=== PATIENT | female | born 1985 | race Caucasian/White ===

== ENCOUNTER 2018-07-04 18:47 | Emergency (ER) | END 2018-07-04 23:28 | disposition home or self-care (01) ==

== ENCOUNTER 2019-02-01 15:50 | Outpatient (CLI) | payer OTHER ==
[~2019-02-01] VITALS: Ht 154.9 cm; Wt 71.3 kg
[~2019-02-01 15:50] MED LIST: HYDR-3498 PO; IBUP-1542 PO; NAPR-985 PO; ONDA4TAB35 PO; PANT20TA2 PO; UDMYL PO
[2019-02-01 16:14] VITALS: BP 108/64; PULSE 97; RESP 20; Ht 154.9 cm; Wt 71.3 kg
[2019-02-01] MEDS ORDERED: PREN1TAB13 PO (16:17)
--- NOTE | 2019-02-01 18:45 | PN ---
Triage Information Date/Time Reason for visit: pelvic pressure for one week Weeks of Gestation 33w /Para Diabetes: none Hypertention: none Additional information UTI last mo treated Objective Vital Signs Date Temp Pulse Resp B/P (MAP) Pulse Ox O2 O2 Flow FiO2 Time Delivery Rate 02/01/19 98.1 97 20 108/64 Room Air 16:14 (79) Heart Rate: 140's Heart Rate Comments CAT I Contractions: None Results/Medications Result Diagram: 02/01/19 1727 Results 24 hrs Laboratory Tests Test 02/01/19 16:10 02/01/19 17:27 Urine Color SILVIA Urine Clarity TURBID A Urine pH 6.0 Urine Specific [place] 1.006 Urine Ketones NEGATIVE Urine Nitrite POSITIVE A Urine Bilirubin NEGATIVE Urine Urobilinogen NEGATIVE Urine Leukocyte Esterase 3+ H Urine Microscopic RBC 6 H Urine Microscopic WBC > 182 H Urine Squamous Epithelial Cells FEW Urine Bacteria MODERATE Urine Hemoglobin 2+ H Urine Glucose 1+ H Urine Total Protein 1+ H White Blood Count 6.0 # Red Blood Count 3.40 #L Hemoglobin 9.9 L Hematocrit 29.7 #L Mean Corpuscular Volume 87.4 Mean Corpuscular Hemoglobin 29.1 Mean Corpuscular Hemoglobin Concent 33.3 Red Cell Distribution Width 12.7 Platelet Count 198 Mean Platelet Volume 11.1 H Immature Granulocytes % 0.300 Neutrophils % 65.8 Lymphocytes % 20.5 Monocytes % 12.4 H Eosinophils % 0.8 Basophils % 0.2 Nucleated Red Blood Cells % 0.0 Immature Granulocytes # 0.020 Neutrophils # 3.9 Lymphocytes # 1.2 Monocytes # 0.7 Eosinophils # 0.1 Basophils # 0.0 Nucleated Red Blood Cells # 0.0 Imaging Results BPP 8/8 CVL 3.5 AURELIO 8 cervix closed Disposition: Discharge Assessment/Plan A IUP 33w UTI borderline oligohydramnios P Rx cephalexin 500mg q6hr for 7days Increase H20 RTH for AURELIO in 2days PARAG HEMPHILL MD Feb 01, 2019 18:45
--- NOTE | 2019-02-01 18:56 | TRIAGE ---
OB Triage Datetime Report Generated by CPN: 02/01/2019 18:56 Datetime: 02/01/2019 17:44 Labor Evaluation Frequency: X2 Monitor Mode: External Duration (sec)2399: 40 Heart Rate FHR Baseline Rate: 140 Monitor Mode: External US FHR Baseline Changes: No Baseline Change Variability: Moderate 6-25 bpm Accelerations: 15X15 Decelerations: None Category: Category I Pain Assessment Pain Scale: 0 Pain Presence: None/Denies Pain Type: N/A Pain Goal: 0 Datetime: 02/01/2019 17:12 Labor Evaluation Frequency: 0 Monitor Mode: External Heart Rate FHR Baseline Rate: 150 Monitor Mode: External US FHR Baseline Changes: No Baseline Change Variability: Moderate 6-25 bpm Accelerations: 15X15 Decelerations: None Category: Category I Pain Assessment Pain Scale: 0 Pain Presence: None/Denies Pain Type: N/A Pain Goal: 0 Datetime: 02/01/2019 16:42 Labor Evaluation Frequency: 0 Monitor Mode: External Heart Rate FHR Baseline Rate: 140 Monitor Mode: External US FHR Baseline Changes: No Baseline Change Variability: Moderate 6-25 bpm Accelerations: 15X15 Decelerations: None Category: Category I Pain Assessment Pain Scale: 0 Pain Presence: None/Denies Pain Type: N/A Pain Goal: 0 Datetime: 02/01/2019 16:10 Assessment Type: Triage Time of Arrival: 02/01/2019 15:36 EGA: 33.0 Chief Complaint: pressure for 1 week Movement: Present Contractions: Denies/Absent Rupture of Membranes: Denies Vaginal Discharge: Denies Recent Sexual Intercouse: Yes Abdominal Trauma: Not Applicable Patient Complaints: Other Time Provider Notified: 02/01/2019 17:05 Provider Notified: DR FREGOSO Initial Plan: efm, ua, bpp Maternal Assessment Level of Consciousness: Fully Conscious DTR's/Clonus: DTRs 2+; No Clonus Headache: Denies Blurred Vision: No Respiratory Effort: Unlabored; Regular Rhythm; Equal Expansion Nausea/Vomiting: Denies RUQ Epigastric Pain: Denies Lower Extremities Edema: Left Lower Extremity Degree: None Upper Extremities Edema: None Degree: None Facial Edema: None Fall Risk Assessment History of Falling: (0) No Secondary Diagnosis: (0) No Ambulatory Aid: (0) Bedrest/Nurse Assist IV Therapy: (0) No Gait: (0) Normal/Bedrest/Immobile Mental Status: (0) Oriented to Own Ability Fall Score: 0 Fall Risk Score Definition: No Risk: No action required Monitor Mode: External Monitor Mode: External US Pain Assessment Pain Scale: 0 Pain Presence: Constant Pain Type: Pressure Pain Location: Perineum Pain Goal: 0 Vaginal Exam Membrane Status: Intact
== END 2019-02-01 18:45 | disposition home or self-care (01) ==
LOC: OBT 15:50 → L-D 15:51 → OBT 18:45
PROVIDERS: ATTEND Obstetrics & Gynecology
DX: O23.43 Unspecified infection of urinary tract in pregnancy, third trimester (principal); O41.03X0 Oligohydramnios, third trimester, not applicable or unspecified; Z3A.33 33 weeks gestation of pregnancy
CPT/HCPCS: 76817; 76818; 81001; 85025; 87086; G0463

== ENCOUNTER 2019-03-02 21:49 | Inpatient (IN) | payer OTHER ==
[~2019-03-02] VITALS: Ht 154.9 cm; Wt 70.9 kg
[~2019-03-02 21:49] MED LIST changes: -HYDR-3498 PO; -IBUP-1542 PO; -NAPR-985 PO; -ONDA4TAB35 PO; -PANT20TA2 PO; +PREN1TAB13 PO; -UDMYL PO
[2019-03-02 22:00] VITALS: BP 107/60; PULSE 88; RESP 16
[2019-03-02] MEDS: ACETAMINOPHEN 325 MG TAB PO PRN (23:37)
[2019-03-02] MEDS: DEXTROSE 5%-LR 1,000 ML IV SCH (23:37)
[2019-03-03] MEDS ORDERED: ACETAMINOPHEN 325 MG TAB PO PRN (00:30)
[2019-03-03] MEDS ORDERED: AL HYDROX/MG HYDROX/SIMETH 30 ML CUP PO PRN (00:30)
[2019-03-03] MEDS ORDERED: ONDANSETRON 4 MG INJ IV PRN (00:30)
--- NOTE | 2019-03-03 01:29 | HP ---
Date/Time of Note Date/Time of Note DATE: 03/03/19 TIME: 01:16 OB - History Hx of Present Free Text/Dictation 33 years old -0-1-3 with single intrauterine at 37 weeks and 2 days with a SHERMAN of 614 arrived in triage with EMS for fainting at home. She reports possible abdominal trauma. She states had another episode of fainting very early in between 4 to 5 weeks. She had no further evaluation at that time. She states good movement. She denies nausea, vomiting, shortness of breath, chest pain, headache, visual changes, vaginal bleeding or LOF. Chief Complaint: Fainting Estimated Due Date: Mar 22, 2019 : 5 Para: 3 Spontaneous : 1 Therapeutic : 0 Care: Good Care Ultrasounds: Normal mid trimester US Obstetrical Complications: None Medical Complications: None Past Family/Social History * Past Medical, Surgical, Family and Obstetric Histories reviewed which were unremarkable. OB Admission Exam Vital Signs Vital Signs Blood pressure 100 7/62, pulse rate 74/minutes, respiratory rate 16/minutes, temperature 98 point Physical Exam HEENT: WNL Heart: Rhythm Normal Lungs: Clear Abdomen: WNL Extremities: Normal Reflexes: Normal Membranes: Intact Heart Rate: 140's Accelerations: Accelerations Present Decelerations: No Decelerations Varibility: Moderate Contractions on Admission: 6-10 Minutes Apart Last 72 hours Lab Results CBC & BMP 03/02/19 22:51 Liver Function Test 03/02/19 22:51 Alanine Aminotransferase (ALT/SGPT) 12 L Albumin 3.5 Alkaline Phosphatase 146 H Aspartate Amino Transf (AST/SGOT) 19 Direct Bilirubin 0.00 Total Protein 6.8 OB Assessment/Plan Other plan: 33 years old -0-1-3 with single intrauterine at 37 weeks and 2 days had one episode of fainting at home -FHR: No sign of metabolic acidosis- Category I -Continuous EFM, toco -Labs as noted above, hemoglobin 9.1. Recommending increase ferrous sulfate to 325 mg twice daily- -Please see the orders -Obtain lab results and ultrasound -EKG done, wnl -Close monitoring LUANN HOOD March 03, 2019 01:28
--- NOTE | 2019-03-03 03:20 | TRIAGE ---
OB Triage Datetime Report Generated by CPN: 03/03/2019 03:19 Datetime: 03/03/2019 02:20 Stage of : Antepartum Datetime: 03/03/2019 02:11 Maternal Assessment Headache: Denies Nausea/Vomiting: Denies Temperature Route: Axillary Monitor Mode: External Pain Assessment Pain Scale: 0 Datetime: 03/02/2019 22:15 Time of Arrival: 03/02/2019 21:37 EGA: 37.1 Arrived By: Stretcher; Ambulance Arrived From: Home Chief Complaint: brought in by ambulance after syncope episode at 2100 where she fell on floor hitting mouth and chicpped 2 front teeth Movement: Absent Contractions: Irregular Rupture of Membranes: Denies Vaginal Bleeding: None Vaginal Discharge: Denies Recent Sexual Intercouse: Denies Abdominal Trauma: Not Applicable Patient Complaints: Cramping; Dizziness; Other Time Provider Notified: 03/02/2019 22:00 Provider Notified: Dr Olson Initial Plan: EFM, CBC,CMP,UA,EFW,BPP,PLACENTA,EKG,D5LR Datetime: 02/01/2019 18:31 Labor Evaluation Frequency: 0 Monitor Mode: External Heart Rate FHR Baseline Rate: 140 Monitor Mode: External US FHR Baseline Changes: No Baseline Change Variability: Moderate 6-25 bpm Accelerations: 15X15 Decelerations: None Category: Category I Pain Assessment Pain Scale: 0 Pain Presence: None/Denies Pain Type: N/A Pain Goal: 0 Datetime: 02/01/2019 16:10 EGA: 33.0 Fall Risk Assessment Fall Score: 0 Fall Risk Score Definition: No Risk: No action required
[2019-03-03] MEDS: DEXTROSE 5%-LR 1,000 ML IV SCH ×3 (06:55→17:51)
[2019-03-03] MEDS: PRENATAL VITAMIN PO SCH (09:55)
[2019-03-03] MEDS: NITROFURANTOIN (SR) 100 MG CAP PO SCH (09:55)
[2019-03-03] MEDS: FERROUS SULFATE (EC) 325 MG TAB PO SCH (09:55)
[2019-03-03] MEDS: ACETAMINOPHEN 325 MG TAB PO PRN ×2 (11:06→19:11)
--- NOTE | 2019-03-03 19:28 | RADRPT ---
Vent Rate: 80 bpm RR Interval: 748 msec NM Interval: 155 msec QRS Duration: 85 msec QT Interval: 347 msec QTC Interval: 401 msec P-R-T [place]: 70 - 19 - 37 degrees Sinus rhythm...normal P axis, V-rate 50- 99 Electronically Signed By: Antonio Hogan
[2019-03-04] MEDS: NITROFURANTOIN (SR) 100 MG CAP PO SCH (08:20)
[2019-03-04] MEDS: PRENATAL VITAMIN PO SCH (08:20)
[2019-03-04] MEDS: FERROUS SULFATE (EC) 325 MG TAB PO SCH (08:20)
--- NOTE | 2019-03-04 13:10 | PN ---
Date/Time of Note Date/Time of Note DATE: 03/04/19 TIME: 13:09 Assessment/Plan VTE Prophylaxis Pharmacological prophylaxis: NA/contraindicated Pharm contraindication: low risk/ambulating Lines/Catheters IV Catheter Type (from Nrsg): Peripheral IV Assessment/Plan Result Diagram: 03/02/19225003/02/191 Results 24hrs Syncopal attack Intrauterine 27 weeks Medicine consult is placed Subjective 24 Hr Interval Summary Free Text/Dictation Currently patient is asymptomatic Constitutional: no complaints, improved Eyes: no complaints ENT: no complaints Respiratory: no complaints Cardiovascular: no complaints Gastrointestinal: no complaints Genitourinary: no complaints Musculoskeletal: no complaints Skin: no complaints Neurologic: no complaints Endocrine: no complaints Lymphatic: no complaints Psychological: no complaints, nl mood/affect Immunologic: no complaints Exam/Review of Systems Exam Vitals Vital Signs Date Temp Pulse Resp B/P (MAP) Pulse Ox O2 O2 Flow FiO2 Time Delivery Rate 03/02/19 98.2 88 16 107/60 99 Room Air 22:00 (76) Intake and Output 03/03/19 03/03/19 03/04/19 1515:00 23:00 07:00 IntakeIntake Total 1000 ml 875 ml OutputOutput Total 1750 ml BalanceBalance 1000 ml -875 ml Exam Patient does not seem to have uterine contractions Medications Medication Current Medications Acetaminophen (Tylenol Tab) 650 mg Q4H PRN PO MILD PAIN(1-3)OR ELEVATED TEMP Last administered on 03/03/19at 19:11; Admin Dose 650 MG; Start 03/02/19 at 23:00 Prenat Multivit/ Supply Chain Consultant/Iron/Folic Ac () 1 tab DAILY PO Last administered on 03/04/19at 08:20; Admin Dose 1 TAB; Start 03/03/19 at 09:00 Ferrous Sulfate (Ferrous Sulfate (Ec)) 325 mg DAILY PO Last administered on 03/04/19at 08:20; Admin Dose 325 MG; Start 03/03/19 at 09:00 Acetaminophen (Tylenol Tab) 650 mg Q4H PRN PO .PAIN OR TEMP; Start 03/03/19 at 00:30 Al Hydrox/Mg Hydrox/Simethicone (Mag-Al Plus) 30 ml Q6H PRN PO .GI UPSET; Start 03/03/19 at 00:30 Ondansetron HCl (Zofran Inj) 4 mg Q6H PRN IV NAUSEA/VOMITING; Start 03/03/19 at 00:30 Nitrofurantoin Macrocrystals (Macrobid) 100 mg DAILY PO Last administered on 03/04/19at 08:20; Admin Dose 100 MG; Start 03/03/19 at 09:00 ERIKA FISHMAN MD March 04, 2019 13:10
[2019-03-04 15:37] VITALS: BP 97/57; PULSE 77; RESP 20
[2019-03-04 15:43] VITALS: BP 115/69
[2019-03-04 15:50] VITALS: BP 102/62; PULSE 98; RESP 20
--- NOTE | 2019-03-04 17:13 | CONS ---
Assessment/Plan Assessment/Plan Hospital Course (Demo Recall) 33 yo F , 37 weeks with PMH migraines presented to ED after syncop al episode Assessment/Plan (Daily) 1. Syncopal episode - Patient states she was stressed at time of event. 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 Will need outpatient evaluation with CT head after delivery 2. Migraines - supportive treatment with Tylenol - states she changed her diet and avoids pork which has helped limit migraine episodes 3. UTI - continue on Macrobid 4. 37 weeks - management per OB 5. Disposition - will check orthostatic vitals and ECHO to rule out cardiology etiology for syncopal episode. Will need outpatient follow up for migraine management and neuro workup after delivery Thank you for allowing me to participate in the care of your patient. Further recommendations based on results of ECHO and vitals. Please call with any questions Consultation Date/Type/Reason Admit Date/Time March 02, 2019 at 23:25 Date of Consultation: March 04, 2019 Type of Consult internal medicine Reason for Consultation syncopal episode Date/Time of Note DATE: 03/04/19 TIME: 16:54 Hx of Present Illness 33 yo F , 37 weeks with PMH migraines presented to ED after syncopal episode of Monday during her baby shower. She was concerned for baby's safety since did not feel movement for 2 weeks. Patient states she does not remember events leading up to syncopal episode. She woke up after having fallen on her face causing injury to her two front teeth and swelling of lip. She does admit to being stressed lately. She has had a previous syncopal episode during the first few weeks of where she tripped as well. Denies any issues prior to . Take Tylenol for migraines during but prior would take Ibuprofen. Unsure if current RUSSO is from fall or migraine symptoms. Patient denies any current chest pain, shortness of breath, dizziness, abdominal pain, or urinary issues. She does admit to taking PO antibiotics as outpatient for persistent UTI. Unsure how much longer she requires antibiotics and does not remember how many days she has taken the medication so far. Just remembers it is once a day. All 12 systems reviewed and pertinent positives as per HPI. All others negative. Constitutional: No disoriented Eyes: No discharge ENT: other (swelling of upper lip, broken right front tooth) Respiratory: No pain, No cough, No shortness of breath, No sputum, No wheezing Cardiovascular: No chest pain, No lightheadedness, No palpitations Gastrointestinal: No pain, No constipation, No diarrhea, No nausea, No vomiting Genitourinary: no complaints Musculoskeletal: no complaints Skin: laceration (lip); No rash Neurologic: headache, syncope; No confusion, No dizziness, No focal-weakness Endocrine: no complaints Lymphatic: no complaints Psychological: nl mood/affect Immunologic: no complaints Past Medical History Medical History: no pertinent history Home Meds Reported Medications Pnv95/Ferrous Fumarate/FA ( Vitamins Tablet) 1 Each Tablet, 1 EACH PO DAILY, TAB 02/01/19 Medications Current Medications Acetaminophen (Tylenol Tab) 650 mg Q4H PRN PO MILD PAIN(1-3)OR ELEVATED TEMP Last administered on 03/03/19at 19:11; Admin Dose 650 MG; Start 03/02/19 at 23:00 Prenat Multivit/ Railroad Wheels [employer] Axle Inspector/Iron/Folic Ac () 1 tab DAILY PO Last administered on 03/04/19at 08:20; Admin Dose 1 TAB; Start 03/03/19 at 09:00 Ferrous Sulfate (Ferrous Sulfate (Ec)) 325 mg DAILY PO Last administered on 03/04/19at 08:20; Admin Dose 325 MG; Start 03/03/19 at 09:00 Acetaminophen (Tylenol Tab) 650 mg Q4H PRN PO .PAIN OR TEMP; Start 03/03/19 at 00:30 Al Hydrox/Mg Hydrox/Simethicone (Mag-Al Plus) 30 ml Q6H PRN PO .GI UPSET; Start 03/03/19 at 00:30 Ondansetron HCl (Zofran Inj) 4 mg Q6H PRN IV NAUSEA/VOMITING; Start 03/03/19 at 00:30 Nitrofurantoin Macrocrystals (Macrobid) 100 mg DAILY PO Last administered on 03/04/19at 08:20; Admin Dose 100 MG; Start 03/03/19 at 09:00 Allergies: Coded Allergies: No Known Allergy (Unverified , 03/02/19) Past Surgical History Past Surgical Hx: no surgical history Family History Significant Family History: no pertinent family hx Social History Alcohol Use: none Smoking Status: Never smoker Drug Use: none Exam/Review of Systems Exam Vitals Vital Signs Date Temp Pulse Resp B/P (MAP) Pulse Ox O2 O2 Flow FiO2 Time Delivery Rate 03/04/19 98 20 102/62 Room Air 15:50 (75) 03/02/19 98.2 99 22:00 Intake and Output 03/03/19 03/03/19 03/04/19 1515:00 23:00 07:00 IntakeIntake Total 1000 ml 875 ml OutputOutput Total 1750 ml BalanceBalance 1000 ml -875 ml Exam General: Patient is pleasant, currently lying in bed in no acute distress HEENT: swelling of upper lip with small laceration, dried blood. broke right front tooth. The pupils are equal, round and reactive. Extraocular motor are intact Neck: Supple Chest: Nontender Lungs: Clear to auscultation bilaterally, no wheezing or rhonchi Heart: Normal S1-S2, Regular rhythm and rate. No murmur, S3, or S4 Abdomen: Soft , nontender, , bowel sounds are present. No guarding no rebound tenderness Extremities: Normal to inspection, no edema no cyanosis Neurologic: Normal mental status, speech normal, cranial nerves II through XII are intact, motor and sensory are intact, no focal weakness Skin: no rashes or lesions Results Result Diagram: 03/02/19225003/02/192250 Imaging Imaging PROCEDURE: US OB biophysical profile. CLINICAL INDICATION: decreased movements, TECHNIQUE: Multiple sonographic images of the pelvis were obtained. The images were reviewed on a PACS workstation. COMPARISON: 02/27 FINDINGS: There is a single live intrauterine gestation. Cardiac activity is present with 139 beats per minute. There is a vertex presentation. The placenta is Posterior. There is no evidence of placental abruption. AURELIO = 8 cm. Biophysical profile: movement 2/2 tone 2/2. breathing 2/2 AURELIO 2/2 Total 05/16 RPTAT: AA . IMPRESSION: Normal biophysical profile. . .Juvencio Garcia MD, MD Date Time Electronically viewed and signed by .Juvencio Garcia MD, MD on 03/02/2019 23:25 Medications Medication Current Medications Acetaminophen (Tylenol Tab) 650 mg Q4H PRN PO MILD PAIN(1-3)OR ELEVATED TEMP Last administered on 03/03/19 19:11; Admin Dose 650 MG; Start 03/02/19 at 23:00 Prenat Multivit/ [place]/Iron/Folic Ac () 1 tab DAILY PO Last administered on 03/04/19 08:20; Admin Dose 1 TAB; Start 03/03/19 at 09:00 Ferrous Sulfate (Ferrous Sulfate (Ec)) 325 mg DAILY PO Last administered on 03/04/19 08:20; Admin Dose 325 MG; Start 03/03/19 at 09:00 Acetaminophen (Tylenol Tab) 650 mg Q4H PRN PO .PAIN OR TEMP; Start 03/03/19 at 00:30 Al Hydrox/Mg Hydrox/Simethicone (Mag-Al Plus) 30 ml Q6H PRN PO .GI UPSET; Start 03/03/19 at 00:30 Ondansetron HCl (Zofran Inj) 4 mg Q6H PRN IV NAUSEA/VOMITING; Start 03/03/19 at 00:30 Nitrofurantoin Macrocrystals (Macrobid) 100 mg DAILY PO Last administered on 03/04/19 08:20; Admin Dose 100 MG; Start 03/03/19 at 09:00 GABE VELAZQUEZ MD March 04, 2019 17:05
[2019-03-04 20:06] VITALS: BP 100/59; PULSE 83; RESP 17
[2019-03-04 20:08] VITALS: BP 98/50; PULSE 80
[2019-03-04 20:10] VITALS: BP 106/58
[2019-03-05] VITALS (9 sets, daily range): BP systolic 92–112; BP diastolic 52–87; PULSE 77–94; RESP 18
[2019-03-05] MEDS: NITROFURANTOIN (SR) 100 MG CAP PO SCH (09:06)
[2019-03-05] MEDS: PRENATAL VITAMIN PO SCH (09:06)
[2019-03-05] MEDS: FERROUS SULFATE (EC) 325 MG TAB PO SCH (09:06)
[2019-03-05] MEDS: ACETAMINOPHEN 325 MG TAB PO PRN (09:09)
[2019-03-05] MEDS ORDERED: POTASSIUM CHLORIDE (SR) 20 MEQ TAB PO STA (09:40)
--- NOTE | 2019-03-05 15:24 | RADRPT ---
Echocardiogram Report Patient Name: HERRERA ANNPatient ID: [id number] : 1985 (33y 5m)Study Date: 03/05/2019 10:04:13 AM Gender: FAccession #: [id number] Tech: Tarun Rod [facility] Location: [facility] Ref.Physician: GABE VELAZQUEZ Height(Cm): BSA: Weight(Kg): Quality: AdequateOrder Physician: GABE VELAZQUEZ Account #: Procedures: Echocardiographic Report: Transthoracic echocardiogram with complete 2D, M-Mode, and doppler examination. Indications: Syncope. Measurements: 2D/M Mode Doppler Measurement Value Normal Range Measurement Value Normal Range LVIDd 2D 4.4 [ 3.8 - 5.2 ] cm AV Peak Ruben 1.5 [ 100.0 - 170.0 ] cm/sec LVIDs 2D 3.1 [ 2.2 - 3.5 ] cm AV Peak PG 10.0 [ 2.0 - 9.0 ] mmHg LVPWd 2D 0.9 [ 0.6 - 0.9 ] cm LVOT Peak Ruben 1.1 [ 70.0 - 110.0 ] cm/sec IVSd 2D 1.0 [ 0.6 - 0.9 ] cm LVOT Peak PG 5.0 [ 2.0 - 6.0 ] mmHg IVS/LVPW 2D 1.1 ratio MV E Peak Ruben 0.9 [ 60.0 - 130.0 ] cm/sec AoR Diam 2D 2.3 [ 2.3 - 3.1 ] cm MV A Peak Ruben 0.7 [ 100.0 - 120.0 ] cm/sec LA/Ao 2D 1 ratio MV E/A 1.4 [ 0.8 - 1.5 ] ratio LA Dimen 2D 3.4 [ 2.7 - 3.8 ] cm MV Decel Time 194 [ 104 - 258 ] msec Lat E` Ruben 0.2 [ 10.0 - 15.0 ] cm/sec MV E/A 1.4 [ 0.8 - 1.5 ] ratio TR Peak Ruben 2.8 [ 100.0 - 280.0 ] cm/sec TR Peak PG 32.0 mmHg RVSP 35.0 [ 10.0 - 36.0 ] mmHg Findings: Left Ventricle: Normal left ventricular systolic function. Normal left ventricular cavity size. Normal left ventricular wall thickness. Ejection fraction is visually estimated at 55 %. Tissue Doppler/Mitral Doppler indices are consistent with pseudonormalization with mildly elevated left atrial pressure (Stage II diastolic dysfunction). Right Ventricle: Normal right ventricular size. Normal right ventricular systolic function. Left Atrium: The left atrium is normal in size. Right Atrium: The right atrium is normal in size. Mitral Valve: Mild mitral leaflet calcification. Mild mitral annular calcification. Trace mitral regurgitation. Aortic Valve: No hemodynamically significant aortic stenosis by doppler. Aortic cusps appear mildly calcified. Tricuspid Valve: Normal appearance of the tricuspid valve. The estimated Peak RVSP is 35 mmHg. There is mild tricuspid regurgitation. Pericardium: Normal pericardium with no significant pericardial effusion. Aorta: Normal aortic root. IVC: Normal size and normal respiratory collapse consistent with normal right atrial pressure. Conclusions: Normal left ventricular systolic function. Normal left ventricular cavity size. Normal left ventricular wall thickness. Ejection fraction is visually estimated at 55 %. Tissue Doppler/Mitral Doppler indices are consistent with pseudonormalization with mildly elevated left atrial pressure (Stage II diastolic dysfunction). No hemodynamically significant aortic stenosis by doppler. Aortic cusps appear mildly calcified. Mild mitral leaflet calcification. Mild mitral annular calcification. Trace mitral regurgitation. Normal appearance of the tricuspid valve. The estimated Peak RVSP is 35 mmHg. There is mild tricuspid regurgitation. Electronically Signed By: Eric Ordonez 2019-03-05 15:23:55 PDT
--- NOTE | 2019-03-05 16:53 | CONS ---
Assessment/Plan Assessment/Plan Hospital Course (Demo Recall) 33 yo F , 37 weeks with PMH migraines presented to ED after syncop al episode Assessment/Plan (Daily) 1. Syncopal episode - most likely vasovagal given patient was stressed and on her feet for extended period of time during baby shower - discussed establishing care with PCP for monitoring following discharge - BP stable - ECHO without any structural abnormalities and preserved EF 2. Migraines - supportive treatment with Tylenol - states she changed her diet and avoids pork which has helped limit migraine episodes - recommended follow up with PCP 3. UTI - continue on Macrobid 4. 37 weeks - management per OB 5. Disposition - medically stable for discharge home. Discussed resting for the next week and avoid any strenuous activity or extended periods of time standing. Also discussed will need to follow up with a dentist but best to do after delivery if more cosmetic related rather than pain. Consultation Date/Type/Reason Admit Date/Time March 02, 2019 at 23:25 Initial Consult Date 03/04/19 Type of Consult internal medicine Date/Time of Note DATE: 03/05/19 TIME: 16:45 24 HR Interval Summary Free Text/Dictation Patient states headaches have resolved and able to ambulate without any issues. Discussed having teeth fixed following delivery given possible need for anesthesia and medications possible not amenable during Exam/Review of Systems Exam Vitals Vital Signs Date Temp Pulse Resp B/P (MAP) Pulse Ox O2 O2 Flow FiO2 Time Delivery Rate 03/05/19 98.1 77 95/58 (70) 12:19 03/05/19 18 96 Room Air 12:05 Exam General: Patient is pleasant, currently lying in bed in no acute distress HEENT: swelling of upper lip with small laceration, dried blood. broke right front tooth. Neck: Supple Lungs: Clear to auscultation bilaterally, no wheezing or rhonchi Heart: Normal S1-S2, Regular rhythm and rate. No murmur, S3, or S4 Abdomen: Soft , nontender, , bowel sounds are present. No guarding no rebound tenderness Extremities: Normal to inspection, no edema no cyanosis Skin: no rashes or lesions Results Result Diagram: 03/05/19 0623 03/05/19 0623 Results 24hrs Laboratory Tests Test 03/05/19 06:23 White Blood Count 7.3 Red Blood Count 3.42 L Hemoglobin 10.0 L Hematocrit 30.1 L Mean Corpuscular Volume 88.0 Mean Corpuscular Hemoglobin 29.2 Mean Corpuscular Hemoglobin Concent 33.2 Red Cell Distribution Width 13.4 Platelet Count 150 Mean Platelet Volume 11.8 H Immature Granulocytes % 0.700 H Neutrophils % 67.5 Lymphocytes % 21.4 Monocytes % 8.5 Eosinophils % 1.4 Basophils % 0.5 Nucleated Red Blood Cells % 0.0 Immature Granulocytes # 0.050 H Neutrophils # 4.9 Lymphocytes # 1.6 Monocytes # 0.6 Eosinophils # 0.1 Basophils # 0.0 Nucleated Red Blood Cells # 0.0 Sodium Level 136 Potassium Level 3.5 Chloride Level 111 H Carbon Dioxide Level 21 Anion Gap 4 L Blood Urea Nitrogen 5 L Creatinine 0.38 L Glucose Level 83 Calcium Level 8.2 L Phosphorus Level 4.0 Magnesium Level 1.9 Albumin 3.0 L Medications Medication Current Medications Acetaminophen (Tylenol Tab) 650 mg Q4H PRN PO MILD PAIN(1-3)OR ELEVATED TEMP Last administered on 03/05/19 09:09; Admin Dose 650 MG; Start 03/02/19 at 23:00 Prenat Multivit/ Rotary Drum Dyer/Iron/Folic Ac () 1 tab DAILY PO Last administered on 03/05/19 09:06; Admin Dose 1 TAB; Start 03/03/19 at 09:00 Ferrous Sulfate (Ferrous Sulfate (Ec)) 325 mg DAILY PO Last administered on 03/05/19 09:06; Admin Dose 325 MG; Start 03/03/19 at 09:00 Acetaminophen (Tylenol Tab) 650 mg Q4H PRN PO .PAIN OR TEMP; Start 03/03/19 at 00:30 Al Hydrox/Mg Hydrox/Simethicone (Mag-Al Plus) 30 ml Q6H PRN PO .GI UPSET; Start 03/03/19 at 00:30 Ondansetron HCl (Zofran Inj) 4 mg Q6H PRN IV NAUSEA/VOMITING; Start 03/03/19 at 00:30 Nitrofurantoin Macrocrystals (Macrobid) 100 mg DAILY PO Last administered on 03/05/19 09:06; Admin Dose 100 MG; Start 03/03/19 at 09:00 GABE VELAZQUEZ MD March 05, 2019 16:53
--- NOTE | 2019-03-05 18:02 | DS ---
Date/Time of Note Date/Time of Note DATE: 03/05/19 TIME: 18:01 Discharge Summary Admission/Discharge Info Admit Date/Time March 02, 2019 at 23:25 Discharge Date/Time March 05, 2019 Discharge Diagnosis Syncopal attack most likely cause was vasovagal Patient Condition: Good Consults Medicine Hospital Course Patient had medicine consult which did not recommend major systemic problem is because of a syncopal attack Patient is already cleared to have discharge after having uncomplicated hospitalization course Home Meds Reported Medications Pnv95/Ferrous Fumarate/FA ( Vitamins Tablet) 1 Each Tablet, 1 EACH PO DAILY, TAB 02/01/19 Follow-up Plan Next day and a clinic Primary Care Provider Not On Staff Doctor Time spent on discharge: > 30 minutes Pending Labs Laboratory Tests Test 03/05/19 06:23 White Blood Count 7.3 10^3/ul (4.8-10.8) Red Blood Count 3.42 10^6/ul (4.20-5.40) Hemoglobin 10.0 g/dl (12.0-16.0) Hematocrit 30.1 % (37.0-47.0) Mean Corpuscular Volume 88.0 fl (82.0-101.0) Mean Corpuscular Hemoglobin 29.2 pg (29.0-33.0) Mean Corpuscular Hemoglobin Concent 33.2 g/dl (32.0-37.0) Red Cell Distribution Width 13.4 % (11.5-14.5) Platelet Count 150 10^3/UL (140-415) Mean Platelet Volume 11.8 fl (7.4-10.4) Immature Granulocytes % 0.700 % (0.001-0.429) Neutrophils % 67.5 % (39.0-77.0) Lymphocytes % 21.4 % (15.0-51.0) Monocytes % 8.5 % (0.0-11.0) Eosinophils % 1.4 % (0.0-7.0) Basophils % 0.5 % (0.0-2.0) Nucleated Red Blood Cells % 0.0 /100WBC (0.0-0.0) Immature Granulocytes # 0.050 10^3/ul (0.0-0.031) Neutrophils # 4.9 10^3/ul (1.6-7.5) Lymphocytes # 1.6 10^3/ul (0.8-2.9) Monocytes # 0.6 10^3/ul (0.3-0.9) Eosinophils # 0.1 10^3/ul (0.0-0.5) Basophils # 0.0 10^3/ul (0.0-0.1) Nucleated Red Blood Cells # 0.0 10^3/ul (0.0-0.0) Sodium Level 136 mmol/L (135-144) Potassium Level 3.5 mmol/L (3.5-5.1) Chloride Level 111 mmol/L (97-110) Carbon Dioxide Level 21 mmol/L (21-31) Anion Gap 4 (5-13) Blood Urea Nitrogen 5 mg/dl (7-20) Creatinine 0.38 mg/dl (0.44-1.00) Glucose Level 83 mg/dl (70-220) Calcium Level 8.2 mg/dl (8.4-10.2) Phosphorus Level 4.0 mg/dl (2.5-4.9) Magnesium Level 1.9 mg/dl (1.7-2.5) Albumin 3.0 g/dl (3.3-4.9) ERIKA FISHMAN MD March 05, 2019 18:02
--- NOTE | 2019-03-05 18:03 | DS ---
Date/Time of Note Date/Time of Note DATE: 03/05/19 TIME: 18:02 Obstetrical Discharge Record Final Diagnosis Final Diagnosis: not delivered Other Final Diagnosis Syncopal attack at 27 weeks gestation Complications Other (Syncopal attack) Condition on Discharge Physical Assessment Voiding: Yes Bowel Movement: Yes Breast: Soft, non-tender, Filling Fundus: Other (Gravid) Abdomen and Incision: Abdomen is soft and with positive heart Calf Tenderness: No Patient Condition: Good ERIKA FISHMAN MD March 05, 2019 18:03
[2019-03-05] MEDS ORDERED: NITR100C6 PO (18:06)
--- NOTE | 2019-03-05 18:06 | PD.PPDC ---
HRIS DEVELOPER Discharge Instruction Provider Information Physician Information 33-year-old female admitted for syncopal attack which was attributed to vasovagal shock Diagnosis [id number] Final Diagnosis: Lljfl7r Syncopal attack Condition [id number] Patient Condition: Ygnsq8p Good Diet Xhawh2Gd Diet: Rhrnw8h Resume Regular Diet Activity/Restrictions Bxbfl2Eg Activity: Soxfv7l Normal Activity May Shower ERIKA FISHMAN MD March 05, 2019 18:06
== END 2019-03-05 20:15 | disposition home or self-care (01) | DRG 833 ==
LOC: OBT 21:49 → L-D 21:50 → OBT 23:25 → L-D 23:25 → PP1 03-03 03:43
PROVIDERS: ADMIT Obstetrics & Gynecology; ATTEND Obstetrics & Gynecology
DX: O26.892 Other specified pregnancy related conditions, second trimester (principal); R55 Syncope and collapse; O23.42 Unspecified infection of urinary tract in pregnancy, second trimester; G43.909 Migraine, unspecified, not intractable, without status migrainosus; Z3A.27 27 weeks gestation of pregnancy
CPT/HCPCS: 76815; 76817; 76818; 80053; 80069; 81003; 83735; 85025; 86850; 86900; 86901; 93005; 93306; G0463; J7121

== ENCOUNTER 2019-03-16 07:02 | Inpatient (IN) | payer OTHER ==
[~2019-03-16] VITALS: Ht 154.9 cm; Wt 70.9 kg
[~2019-03-16 07:02] MED LIST changes: +NITR100C6 PO
--- NOTE | 2019-03-16 07:06 | NSTRPT ---
NST Information Datetime Report Generated by CPN: 03/16/2019 07:05 Datetime: 03/16/2019 07:05 NST Information EGA: 36.5 Datetime: 02/27/2019 13:29 NST Information EGA: 36.5 Test Number: 1 Time on Monitor: 02/27/2019 13:57 Time off Monitor: 02/27/2019 14:30 NST Duration (Min): 33 Reason for NST: Poor Growth Test and Monitor Explained: Monitor Explained; Test Explained; Verbalized Understanding Pulse: 73 Resp: 18 SBP: 103 DBP: 57 Test Evaluation NST Interventions: None Patient States Movement: Present Contraction Frequency: NONE FHR Baseline : 135 Variability: Moderate 6-25bpm Accelerations: 15X15 (Annotations: Data stored by N on behalf of user) Decelerations: None FHR Category: Category I NST Results: Reactive Comments: pt to u/s. AURELIO 13.0cm. CEPHALIC . Electronically Signed By E-Signature: with User ID: [id number]
[2019-03-16 07:30] VITALS: Ht 154.9 cm; Wt 70.9 kg
[2019-03-16 07:31] VITALS: BP 110/68; PULSE 70; RESP 18
[2019-03-16] MEDS ORDERED: LACTATED RINGER'S 1,000 ML IV SCH (07:47)
[2019-03-16] MEDS ORDERED: LIDOCAINE 1% (MPF) 30 ML INJ INJ PRN (08:00)
[2019-03-16] MEDS ORDERED: CARBOPROST 250 MCG INJ IM PRN ×2 (08:00→10:30)
[2019-03-16] MEDS ORDERED: METHYLERGONOVINE 0.2 MG INJ IM PRN ×2 (08:00→10:30)
[2019-03-16] MEDS ORDERED: BUTORPHANOL 2 MG INJ IV PRN ×2 (08:00)
[2019-03-16] MEDS ORDERED: AMPICILLIN 2 GM/NS (PMX) 100 ML IV ONE (08:00)
[2019-03-16] MEDS ORDERED: OXYTOCIN 30 UNITS/LR 500 ML IV SCH ×3 (08:00→10:02)
[2019-03-16] MEDS ORDERED: OXYTOCIN 30 UNITS/LR 500 ML IV PRN ×2 (08:00→10:30)
[2019-03-16] MEDS ORDERED: MISOPROSTOL 200 MCG TAB PR PRN ×2 (08:00→10:30)
--- NOTE | 2019-03-16 09:57 | LDN ---
Date/Time of Note Date/Time of Note DATE: 03/16/19 TIME: 09:54 Delivery Summary Weeks of Gestation Term gestation/ Placenta Delivered: Spontaneously Meconium: none Episiotomy: No Anesthesia type: None Estimated blood loss: 100 Sponge & Needle done & correct: Yes All needle counts correct: Yes Any foreign bodies felt in the: No Delivery Information Sex Sex: male Apgars 1 Minute: 9 5 Minute: 9 Suctioning Nose & mouth suctioned at [place]: Yes Delee suction performed: No Umbilical Cord Umbilical cord with: 3 Vessels Cord presentations: no nuchal cord Cord Blood was obtained: Yes Mother & Baby Disposition Disposition Baby's weight 6 pounds 6 ounces/ 2905 g Copies To: CC: ERIKA FISHMAN MD ; CHEKO MCNAIR MD Mar 16, 2019 09:57
[2019-03-16] MEDS ORDERED: LACTATED RINGER'S 1,000 ML IV* SCH (10:02)
--- NOTE | 2019-03-16 10:03 | HP ---
Date/Time of Note Date/Time of Note DATE: 03/16/19 TIME: 09:54 OB - History Hx of Present Free Text/Dictation 33-year-old female 5 para 3 AB 1 at 39+ weeks gestation admitted complaining of onset of labor contractions at 5 AM Chief Complaint: Labor pains Last Menstrual Period: Jun 15, 2018 Estimated Due Date: Mar 22, 2019 : 5 Para: 3 Spontaneous : 1 Care: Good Care Ultrasounds: Normal mid trimester US Obstetrical Complications: None Medical Complications: None Past Family/Social History * Past Medical, Surgical, Family and Obstetric Histories reviewed from chart. Blood Type: A+ Rubella: immune RPR/VDRL: Negative GBS Status: Positive HBsAG: Negative OB Admission Exam Vital Signs Vital Signs Vital Signs Date Temp Pulse Resp B/P (MAP) Pulse Ox O2 O2 Flow FiO2 Time Delivery Rate 03/16/19 97.6 70 18 110/68 07:31 (82) Physical Exam HEENT: WNL Heart: Rhythm Normal Lungs: Clear, Equal Abdomen: WNL Extremities: Normal Reflexes: Normal Cervical Dilatation: 4cm Effacement: 75% Station: -3 Membranes: Intact Heart Rate: 140's Accelerations: Accelerations Present Decelerations: No Decelerations Varibility: Marked Contractions on Admission: 6-10 Minutes Apart Date/Time Contractions Began: March 16, 2019 at 5 AM Frequency of Contractions: 5 minutes Intensity: Moderate Last 72 hours Lab Results CBC & BMP 03/16/19 08:00 OB Assessment/Plan Other Assessment: Term gestation in labor contractions Other plan: Proceed with a spontaneous labor Vaginal delivery anticipate ERIKA FISHMAN MD Mar 16, 2019 10:03
[2019-03-16] MEDS ORDERED: KETOROLAC 30 MG INJ IV STA (10:05)
[2019-03-16] MEDS ORDERED: ACETAMINOPHEN 500 MG TAB PO STA (10:05)
[2019-03-16] MEDS ORDERED: WITCH HAZEL/GLYCERIN PAD PR PRN ×2 (10:30→12:30)
[2019-03-16] MEDS ORDERED: SENNA/DOCUSATE NA (8.6MG/50MG) TAB PO PRN (10:30)
[2019-03-16] MEDS ORDERED: MAGNESIUM HYDROXIDE 30ML CUP PO PRN (10:30)
[2019-03-16] MEDS ORDERED: DIBUCAINE 1% 30 GM OINT TOP PRN ×2 (10:30→12:30)
[2019-03-16] MEDS ORDERED: ONDANSETRON 4 MG INJ IV PRN (10:30)
[2019-03-16] MEDS ORDERED: BENZOCAINE 20% 56 ML SPRAY TOP PRN ×2 (10:30→12:30)
[2019-03-16] MEDS ORDERED: LANOLIN HPA 1 PKT TOP PRN ×2 (10:30→12:30)
[2019-03-16] MEDS ORDERED: ACETAMINOPHEN 325 MG TAB PO PRN ×2 (10:30)
[2019-03-16] MEDS ORDERED: IBUPROFEN 600 MG TAB PO PRN (10:30)
[2019-03-16 10:50] VITALS: BP 108/58; PULSE 68; RESP 18
[2019-03-16 11:05] VITALS: BP 106/58; PULSE 67; RESP 18
[2019-03-16 11:30] VITALS: BP 104/55; PULSE 68; RESP 18
[2019-03-16] MEDS ORDERED: AMPICILLIN 1 GM/NS (PMX) 50 ML IV SCH (12:00)
[2019-03-16] MEDS: LACTATED RINGER'S 1,000 ML IV* SCH ×2 (12:03→19:58)
[2019-03-16] MEDS ORDERED: HYDROCODONE/APAP (5/325) TAB PO PRN ×2 (12:30)
[2019-03-16] MEDS ORDERED: ZOLPIDEM 5 MG TAB PO PRN (12:30)
[2019-03-16] MEDS: IBUPROFEN 600 MG TAB PO SCH ×2 (12:39→17:39)
[2019-03-16 16:00] VITALS: BP 90/52; PULSE 74; RESP 18
[2019-03-16 21:00] VITALS: BP 90/50; PULSE 68; RESP 17
[2019-03-16] MEDS: SENNA/DOCUSATE NA (8.6MG/50MG) TAB PO SCH (21:30)
[2019-03-16] MEDS: MAGNESIUM HYDROXIDE 30ML CUP PO SCH (21:30)
[2019-03-17] MEDS: IBUPROFEN 600 MG TAB PO SCH ×5 (00:08→23:43)
[2019-03-17 04:00] VITALS: BP 93/52; RESP 18
[2019-03-17] MEDS: LACTATED RINGER'S 1,000 ML IV* SCH ×2 (04:03→12:03)
[2019-03-17 08:00] VITALS: BP 92/55; PULSE 69; RESP 16
[2019-03-17] MEDS: MAGNESIUM HYDROXIDE 30ML CUP PO SCH ×2 (09:00→23:43)
[2019-03-17] MEDS: SENNA/DOCUSATE NA (8.6MG/50MG) TAB PO SCH ×2 (09:00→23:43)
[2019-03-17 15:40] VITALS: BP 100/59; PULSE 76; RESP 18
--- NOTE | 2019-03-17 16:37 | DS ---
Date/Time of Note Date/Time of Note Home today or next day DATE: 03/17/19 TIME: 16:36 Obstetrical Discharge Record Final Diagnosis Final Diagnosis: Term delivered Other Final Diagnosis Status post vaginal delivery Vaginal Delivery Obstetrical Delivery: Spontaneous Condition on Discharge Physical Assessment Last Vitals: See nurse's notes Voiding: Yes Bowel Movement: Yes Breast: Soft, non-tender, Filling Fundus: Firm Abdomen and Incision: Abdomen is soft with present bowel sounds Fundus is firm Episiotomy: Perineum is clean Calf Tenderness: No Patient Condition: Good ERIKA FISHMAN MD Mar 17, 2019 16:37
--- NOTE | 2019-03-17 16:38 | PD.PPDC ---
PAPER SALES MANAGER Discharge Instruction Provider Information Physician Information 33-year-old female had vaginal delivery Diagnosis Axugj7Rp Final Diagnosis: Kelxx0j Status post vaginal delivery Condition Mzwxv1Hy Patient Condition: Mxilk0f Good Diet Qxwut5Eh Diet: Srzlh6s Resume Regular Diet Activity/Restrictions Haiwu2Rg Activity: Igbjc8m Normal Activity May Shower [id number] Restrictions: Zhybi5o Nothing in the Vagina Avgjx1Nd Return to Work or School: Drwxp9u May 06, 2019 Follow-up Follow-up with Physician: 2, 4, Week/Weeks (In clinic) Return to clinic for Kbpyq6Yt OB Instructions: Xcyux5v Breast Tenderness Depression Comment: Pelvic rest for 6 weeks ERIKA FISHMAN MD Mar 17, 2019 16:38
[2019-03-17] MEDS ORDERED: IBUP-1542 PO (16:39)
[2019-03-17 20:00] VITALS: BP 96/62; PULSE 70; RESP 18
[2019-03-18 05:09] VITALS: BP 104/59; PULSE 69; RESP 18
[2019-03-18] MEDS: IBUPROFEN 600 MG TAB PO SCH ×3 (05:38→13:39)
[2019-03-18 08:00] VITALS: BP 110/58; PULSE 72; RESP 18
[2019-03-18] MEDS: MAGNESIUM HYDROXIDE 30ML CUP PO SCH (09:00)
[2019-03-18] MEDS: SENNA/DOCUSATE NA (8.6MG/50MG) TAB PO SCH (09:00)
[2019-03-18] MEDS ORDERED: VARICELLA VACCINE LIVE/PF 1,350 UNIT/0.5 ML ML SC* ONE (09:00)
[2019-03-18] MEDS ORDERED: DIPHTH/TET/ACEL PERTUSS (ADULT) 0.5 ML VIAL IM* ONE (09:00)
[2019-03-18] MEDS ORDERED: MEASLES,MUMPS,RUBELLA VACCINE INJ SC* ONE (09:00)
--- NOTE | 2019-03-19 15:07 | DELSUM ---
Delivery Summary A-C Datetime Report Generated by CPN: 03/19/2019 15:07 DELIVERY PERSONNEL Electrical Accessories Ii Assembler: Sebunnya, Phoebe MATERNAL INFORMATION Delivery Anesthesia: None Medications in Delivery: pitocin 30 UNITS LR 500ML Delivery QBL (ml): 100 Placenta Cultured: No LABOR SUMMARY EDC: 03/22/2019 00:00 No. Babies in Womb: 1 Attempted: No Labor Anesthesia: IV Sedation LABOR INFORMATION Reason for Induction: Not Applicable Onset of Labor: 03/16/2019 05:00 Complete Dilatation: 03/16/2019 09:27 Oxytocin: N/A Group B Beta Strep: Positive Antibiotics # of Doses: 1 Antibiotics Time of Last Dose: 03/16/2019 09:01 Steroids Given: None Reason Steroids Not Administered: Not Applicable MEMBRANES Membranes Rupture Method: Spontaneous Rupture of Membranes: 03/16/2019 09:27 Length of Rupture (hr): 0.02 Amniotic Fluid Color: Clear Amniotic Fluid Amount: Moderate Amniotic Fluid Odor: Normal STAGES OF LABOR Stage 1 hr: 4 Stage 1 min: 27 Stage 2 hr: 0 Stage 2 min: 1 Stage 3 hr: 0 Stage 3 min: 3 Total Time in Labor hr: 4 Total Time in Labor min: 31 VAGINAL DELIVERY Episiotomy: None Laceration Extension: N/A Laceration Type: None Laceration Repair: Not Applicable Initial Vag Sponge Count: 10 Final Vag Sponge Count: 10 Initial Vag Sharps Count: 1 Final Vag Sharps Count: 1 Sponge Count Correct: Yes; Vaginal Sweep Performed Sharps Count Correct: Yes BABY A INFORMATION Infant Delivery Date/Time: 03/16/2019 09:28 Method of Delivery: Vaginal Born in Route : No : N/A Forceps: N/A Vacuum Extraction: N/A Shoulder Dystocia : N/A SHOULDER DYSTOCIA BABY A Infant Delivery Date/Time: 03/16/2019 09:28 PRESENTATION/POSITION BABY A Presentation: Cephalic Cephalic Presentation: Vertex Vertex Position: Left Occipital Anterior Breech Presentation: N/A PLACENTA INFORMATION BABY A Placenta Delivery Time : 03/16/2019 09:31 Placenta Method of Delivery: Spontaneous Placenta Status: Delivered SCORES BABY A Heart Rate 1 min: >100 bpm Resp Effort 1 min: Good Cry Reflex Irritability 1 min: Cough/Sneeze/Pulls Away Muscle Tone 1 min: Active Motion Color 1 min: Body [place], Extremit Blue Resuscitation Effort 1 min: Tactile Stimulation SCORE 1 MIN: 9 Heart Rate 5 min: >100 bpm Resp Effort 5 min: Good Cry Reflex Irritability 5 min: Cough/Sneeze/Pulls Away Muscle Tone 5 min: Active Motion Color 5 min: Body [place], Extremit Blue Resuscitation Effort 5 min: Tactile Stimulation SCORE 5 MIN: 9 INFANT INFORMATION BABY A Gestational Age at Delivery: 39.1 Gestational Status: Full Term- 39- 40.6 Weeks Infant Outcome : Liveborn Condition : Stable Sex: Female IDENTIFICATION/MEDS BABY A ID Band Number: [id number] ID Band Location: Right Leg; Left Arm Sensor Applied: Yes Sensor Number: [id number] Sensor Location : Cord Clamp Vitamin K Given : Not Given Erythromycin Given: Not Given WEIGHT/LENGTH BABY A Birthweight (gm): 2905 Weight (lb): 6 Weight (oz): 6 Length (in): 18.50 Length (cm): 46.99 CORD INFORMATION BABY A No. Cord Vessels: 3 Nuchal Cord : N/A Nuchal Cord- Other: 0 True Knot: 0 Cord Blood Taken: Yes Banking/Donate Info: NO Suction: Mouth; Nose ASSESSMENT BABY A Complications: Multiple Variable Decels Physical Findings at Delivery: Within Normal Limits Respirations: Appears Normal Engagement Engineer/ALS Called : No Infant Care By: Carine TURNER RN Transferred To: Remains with Mother
== END 2019-03-18 15:07 | disposition home or self-care (01) | DRG 807 ==
LOC: L-D 07:02 → OBT 07:02 → L-D 07:40 → OBT 07:40 → L-D 08:41 → PP1 11:28
PROVIDERS: ADMIT Obstetrics & Gynecology; ATTEND Obstetrics & Gynecology
PROC: 10E0XZZ Delivery of Products of Conception, External Approach (ICD-10-PCS; principal; 2019-03-17)
DX: O99.824 Streptococcus B carrier state complicating childbirth (principal); Z37.0 Single live birth; Z3A.39 39 weeks gestation of pregnancy
CPT/HCPCS: 85025; 85610; 85730; 86592; 86850; 86900; 86901; 87340; 90716; 99464; G0463; J0290; J0595; J2590; J7120

== ENCOUNTER 2019-04-22 14:05 | Day surgery (SDC) | payer OTHER ==
[~2019-04-22] VITALS: Ht 154.9 cm; Wt 64.4 kg
[2019-04-22] VITALS (16 sets, daily range): BP systolic 102–117; BP diastolic 53–72; PULSE 60–78; RESP 8–42; Ht 154.9 cm; Wt 64.4 kg
[~2019-04-22 14:05] MED LIST changes: +CEFAZOLIN 2 GM/50 ML (PMX) 50 ML IVPB ONE; +IBUP-1542 PO; +LACTATED RINGER'S 1,000 ML (ENTER RATE) IV ONE; -NITR100C6 PO
--- NOTE | 2019-04-22 15:48 | PREAC ---
Date/Time of Note Date/Time of Note DATE: 04/22/19 TIME: 15:44 Anesthesia Eval and Record Evaluation Time Pre-Procedure Interview DATE: 04/22/19 TIME: 15:44 Age 33 Sex female NPO: 8 hrs Preoperative diagnosis MULTIPARITY, REQUEST FOR STERILIZATION Planned procedure LAP NORA Past Medical History Past Medical History: None Surgery & Anesthesia Issues No known issue Meds Anticoagulation: No Beta Liz within 24 hr: No Reason Beta Liz not given: Pt. not on B-Liz Discontinued Reported Medications Pnv95/Ferrous Fumarate/FA ( Vitamins Tablet) 1 Each Tablet, 1 EACH PO DAILY, TAB 02/01/19 Discontinued Scripts Ibuprofen* (Ibuprofen*) 600 Mg Tablet, 600 MG PO Q6, #60 TAB 0 Refills Prov:ERIKA FISHMAN MD 03/17/19 Current Medications Lactated Ringer's 1,000 ml @ 25 mls/hr Q24H ONCE IV Last administered on 04/22/19at 15:13; Admin Dose 25 MLS/HR; Start 04/22/19 at 14:00; Stop 04/23/19 at 13:59 Meds reviewed: Yes Allergies Coded Allergies: No Known Allergy (Unverified , 04/22/19) Allergies Reviewed: Yes Labs/Studies Labs Reviewed: Reviewed by anesthesiologist Result Diagram: 04/22/19 1510 04/22/19 1510 Laboratory Tests 04/22/19 15:10 test: Negative Pre-procedure Exam Last vitals Vital Signs Date Temp Pulse Resp B/P (MAP) Pulse Ox O2 O2 Flow FiO2 Time Delivery Rate 04/22/19 98.3 72 18 102/57 98 Room Air 15:18 (72) Airway: Adequate mouth opening, Adequate thyromental dist Mallampati: Mallampati II Teeth: Normal Lung: Normal Heart: Normal ASA Physical Status ASA physical status: 1 Emergency: None Planned Anesthetic General/MAC: ETT Nerve block: TAP (bilateral) Pre-operative Attestations Prior to commencing anesthesia and surgery, the patient was re-evaluated, there was verification of: *The patient's identity *The results of appropriate recent lab work and preoperative vital signs *The above evaluation not changing prior to induction *Anesthetic plan, risk benefits, alternative and complications discussed with patient/family; questions answered; patient/family understands, accepts and wishes to proceed. Kevon Newman M.D. Apr 22, 2019 15:48
[2019-04-22] MEDS ORDERED: ROCURONIUM 50 MG INJ ONE (15:52)
[2019-04-22] MEDS ORDERED: NEOSTIGMINE 3 MG/3 ML SYRINGE ONE (15:52)
[2019-04-22] MEDS ORDERED: GLYCOPYRROLATE 0.4 MG INJ ONE (15:52)
[2019-04-22] MEDS ORDERED: PROPOFOL 20 ML ONE (15:52)
[2019-04-22] MEDS ORDERED: CEFAZOLIN 1 GM INJ ONE (15:52)
[2019-04-22] MEDS ORDERED: ROPIVACAINE 0.5 % 30 ML VIAL ONE (15:53)
[2019-04-22] MEDS ORDERED: FENTAnyl 50 MCG/ML VIAL ONE (15:53)
[2019-04-22] MEDS ORDERED: MIDAZOLAM 1 MG/ML 2 ML INJ ONE (15:53)
[2019-04-22] MEDS ORDERED: ONDANSETRON 4 MG INJ ONE (15:53)
[2019-04-22] MEDS ORDERED: DEXAMETHASONE 4 MG/ML 5 ML INJ ONE (15:53)
[2019-04-22] MEDS ORDERED: ALBUTEROL 0.083% (NEB) 2.5 MG/3 ML AMP HHN PRN (16:00)
[2019-04-22] MEDS ORDERED: TRIMETHOBENZAMIDE 100 MG/ML VIAL IM PRN (16:00)
[2019-04-22] MEDS ORDERED: LABETALOL HCL 20MG INJ IV PRN (16:00)
[2019-04-22] MEDS ORDERED: FENTAnyl 50 MCG/ML VIAL IV PRN ×3 (16:00)
[2019-04-22] MEDS ORDERED: ONDANSETRON 4 MG INJ IV PRN (16:00)
[2019-04-22] MEDS ORDERED: hydrALAzine 20 MG INJ IV PRN (16:00)
[2019-04-22] MEDS ORDERED: MIDAZOLAM 1 MG/ML 2 ML INJ IV PRN (16:00)
[2019-04-22] MEDS ORDERED: HYDROmorphONE 1 MG/5 ML IV SYRINGE IV PRN ×3 (16:00)
[2019-04-22] MEDS ORDERED: OXYCODONE/ACETAMINOPHEN (5/325) TAB PO PRN ×2 (16:00)
[2019-04-22] MEDS ORDERED: EPHEDrine 25 MG/5 ML SYG IV PRN (16:00)
[2019-04-22] MEDS ORDERED: MEPERIDINE 25 MG INJ IV PRN (16:00)
[2019-04-22] MEDS ORDERED: IPRATROPIUM (NEB) 0.5 MG/2.5 ML AMP HHN PRN (16:00)
[2019-04-22] MEDS ORDERED: DIPHENHYDRAMINE 50 MG INJ IV PRN (16:00)
--- NOTE | 2019-04-22 16:06 | HP ---
Date/Time of Note Date/Time of Note DATE: 04/22/19 TIME: 16:05 Assessment/Plan VTE Prophylaxis Risk score (from Ns)>0 risk: 2 SCD applied (from Ns): Yes Pharmacological prophylaxis: NA/contraindicated Pharm contraindication: low risk/ambulating Lines/Catheters IV Catheter Type (from [facility]): Peripheral IV Assessment/Plan Assessment/Plan Multiparity with desire for sterilization Proceed with laparoscopic tubal fulguration versus mini lap tubal ligation in case of being unsuccessful with laparoscopy Result Diagram: 04/22/19 1510 04/22/19 1510 Results 24hrs Laboratory Tests Test 04/22/19 15:10 White Blood Count 4.6 #L Red Blood Count 4.15 L Hemoglobin 11.8 L Hematocrit 36.2 L Mean Corpuscular Volume 87.2 Mean Corpuscular Hemoglobin 28.4 L Mean Corpuscular Hemoglobin Concent 32.6 Red Cell Distribution Width 13.1 Platelet Count 160 Mean Platelet Volume 12.0 H Immature Granulocytes % 0.400 Neutrophils % Lymphocytes % Monocytes % Eosinophils % Basophils % Nucleated Red Blood Cells % 0.0 Immature Granulocytes # 0.020 Neutrophils # Lymphocytes # Monocytes # Eosinophils # Basophils # Nucleated Red Blood Cells # Prothrombin Time 13.4 Prothrombin Time Ratio 1.0 INR International Normalized Ratio 1.01 Activated Partial Thromboplast Time 29.1 Sodium Level 141 Potassium Level 3.7 Chloride Level 109 Carbon Dioxide Level 25 Anion Gap 7 Blood Urea Nitrogen 10 Creatinine 0.54 Est Glomerular Filtrat Rate mL/min > 60 Glucose Level 78 Calcium Level 8.8 Serum HCG, Qualitative NEGATIVE HPI/ROS Admit Date/Time Admit Date/Time 04/22/2019 Hx of Present Illness 33-year-old female multigravid here for voluntary sterilization ROS Constitutional: no complaints, improved Eyes: no complaints ENT: no complaints Respiratory: no complaints Cardiovascular: no complaints Gastrointestinal: no complaints Genitourinary: no complaints Musculoskeletal: no complaints Skin: no complaints Neurologic: no complaints Endocrine: no complaints Lymphatic: no complaints Psychological: no complaints, nl mood/affect Immunologic: no complaints PMH/Family/Social Past Medical History Medical History: no pertinent history Medications Current Medications Lactated Ringer's 1,000 ml @ 25 mls/hr Q24H ONCE IV Last administered on 04/22/19at 15:13; Admin Dose 25 MLS/HR; Start 04/22/19 at 14:00; Stop 04/23/19 at 13:59 Hydromorphone HCl (Dilaudid) 0.2 mg PACU PRN IV MILD PAIN 1-3; Start 04/22/19 at 16:00; Stop 04/22/19 at 21:00 Hydromorphone HCl (Dilaudid) 0.4 mg PACU PRN IV MOD PAIN 4-6; Start 04/22/19 at 16:00; Stop 04/22/19 at 21:00 Hydromorphone HCl (Dilaudid) 0.6 mg PACU PRN IV SEVERE PAIN 7-10; Start 04/22/19 at 16:00; Stop 04/22/19 at 21:00 Fentanyl (Sublimaze) 25 mcg PACU ORDER PRN IV MILD PAIN 1-3; Start 04/22/19 at 16:00; Stop 04/22/19 at 21:00 Fentanyl (Sublimaze) 50 mcg PACU ORDER PRN IV MOD PAIN 4-6; Start 04/22/19 at 16:00; Stop 04/22/19 at 21:00 Fentanyl (Sublimaze) 75 mcg PACU ORDER PRN IV SEVERE PAIN 7-10; Start 04/22/19 at 16:00; Stop 04/22/19 at 21:00 Oxycodone/ Acetaminophen (Percocet (5/ 325)) 1 tab PACU ORDER PRN PO .PAIN 1-5; Start 04/22/19 at 16:00; Stop 04/22/19 at 21:00 Oxycodone/ Acetaminophen (Percocet (5/ 325)) 2 tab PACU ORDER PRN PO .PAIN 6-10; Start 04/22/19 at 16:00; Stop 04/22/19 at 21:00 Ondansetron HCl (Zofran Inj) 4 mg PACU ORDER PRN IV NAUSEA/VOMITING; Start 04/22/19 at 16:00; Stop 04/22/19 at 21:00 Trimethobenzamide HCl (Tigan) 200 mg PACU ORDER PRN IM NAUSEA/VOMITING; Start 04/22/19 at 16:00; Stop 04/22/19 at 21:00 Labetalol HCl (Labetalol) 5 mg PACU ORDER PRN IV HIGH BLOOD PRESSURE; Start 04/22/19 at 16:00; Stop 04/22/19 at 21:00 Hydralazine HCl (Apresoline) 5 mg PACU ORDER PRN IV HIGH BLOOD PRESSURE; Start 04/22/19 at 16:00; Stop 04/22/19 at 21:00 Ephedrine Sulfate 5 mg PACU ORDER PRN IV BLOOD PRESSURE SUPPORT; Start 04/22/19 at 16:00; Stop 04/22/19 at 21:00 Albuterol (Proventil 0.083% (Neb)) 2.5 mg PACU ORDER PRN HHN .WHEEZING; Start 04/22/19 at 16:00; Stop 04/22/19 at 21:00 Ipratropium [place] (Atrovent 0.02% (Neb)) 0.5 mg PACU ORDER PRN HHN .WHEEZING; Start 04/22/19 at 16:00; Stop 04/22/19 at 21:00 Meperidine HCl (Demerol) 25 mg PACU ORDER PRN IV .RIGORS; Start 04/22/19 at 16:00; Stop 04/22/19 at 21:00 Diphenhydramine HCl (Benadryl) 25 mg PACU ORDER PRN IV .PRURITUS; Start 04/22/19 at 16:00; Stop 04/22/19 at 21:00 Midazolam HCl (Versed) 0.5 mg PACU ORDER PRN IV .ANXIETY; Start 04/22/19 at 16:00; Stop 04/22/19 at 21:00 Coded Allergies: No Known Allergy (Unverified , 04/22/19) Past Surgical History Past Surgical Hx: no surgical history Family History Significant Family History: no pertinent family hx Social History Alcohol Use: none Smoking Status: Never smoker Drug Use: none Exam/Review of Systems Vital Signs Vitals Vital Signs Date Temp Pulse Resp B/P (MAP) Pulse Ox O2 O2 Flow FiO2 Time Delivery Rate 04/22/19 98.3 72 18 102/57 98 Room Air 15:18 (72) Exam Exam 33-year-old female does not appear to be in any distress or distress Constitutional: alert, oriented, well developed Psych: no complaints, nl mood/affect Head: normocephalic, atraumatic Eyes: nl conjunctiva, EOMI, nl lids, nl sclera, PERRL ENMT: nl external ears & nose, nl lips & teeth, nl nasal mucosa & septum Neck: supple, non-tender Respiratory: clear to auscultation, normal air movement Cardiovascular: regular rate and rhythm, nl pulses Gastrointestinal: soft, nl liver, spleen, non-tender Musculoskeletal: nl extremities to inspection Extremities: normal pulses Neurological: HANDTOOLS REPAIRER II-XII intact, nl mental status, nl speech, nl strength Skin: nl turgor; No rash or lesions Lymph: nl lymph nodes ERIKA FISHMAN MD Apr 22, 2019 16:06
[2019-04-22] MEDS ORDERED: BUPIVACAINE 0.25%/EPI (SDV) 30 ML INJ ONE (16:39)
[2019-04-22] MEDS ORDERED: KETOROLAC 60 MG INJ IM STA (17:16)
--- NOTE | 2019-04-22 17:22 | OPR ---
Operative Report Planned Procedure Free Text/Dictation 33-year-old female for voluntary sterilization Procedure date Apr 22, 2019 Procedure(s) Bilateral tubal fulguration via laparoscopic procedure Performed by see signature line Anesthesiologist: Kevon Newman M.D. Pre-procedure diagnosis Multiparity with desire for sterilization [id number] Anesthesia Type: Aseos4e general Post-Procedure Post-procedure diagnosis Status post bilateral tubal fulguration Findings Normal-appearing right and left fallopian tubes and ovaries Estimated Blood Loss: minimal Specimen(s) none Grafts/Implant(s) none Complication(s) none Pt Condition post procedure: stable Disposition: PACU Procedure Description The patient was placed on the OR table in the supine position. General anesthesia was induced. The patient was turned into lithotomy position for vaginal and laparoscopic procedure specifically. Perineal, vaginal, and abdominal area were then prepped with Betadine and draped for a usual laparoscopic procedure and a vaginal procedure. A Luke catheter was then inserted into urinary bladder under aseptic condition in operating room and under satisfactory anesthesia, a small speculum was inserted into vagina. Anterior lip of the cervix was secured with a tenaculum. Cervix was brought down to operative field. It was progressively dilated to #6 Hegar. A HUMI elevator was inserted into cervical canal and afterwards uterine cavity. After insufflation of the tube all the other instruments were removed from vaginal cavity. After changing gloves, turning to abdominal side, a small incision was placed just below belly button 0.5 cm in length. A 0.5 cm trocar was introduced inside the incision. The trocar was blunt and pointing toward the uterine dome. The trocar was easily inserted inside the abdominal. A laparoscope was then inserted into the abdominal cavity, making sure the correct cavity was entered. Intra-abdominal cavity was insufflated with CO2. Under direct visualization a small incision was made a 0.5 cm in length about 2 to 3 fingerbreadths above and parallel to the symphysis pubis. A 0.5 cm trocar was then introduced inside the incision. Under direct visualization the second probe was also inserted into abdominal cavity easily. The uterus and fallopian tubes were easily identified. Right fallopian tube was approached first and at least 5 cm of the tube was adequately fulgurated, making sure no live tissue was left in between. The same procedure was done on the left side. Serious care was taken to avoid bowel, bladder, or other intra-abdominal organ injury. At this point, procedure was terminated. The trocar incision sites from inside the abdomen on either side were observed. No bleeding was observed. After removing the laparoscope, the abdomen was desufflated to its normal position. Afterwards, all of the trocar sleeves were removed. Abdominal incisions were closed using stacie. The HUMI was then discontinued. Also, Luke was taken out. The patient was returned to supine position. Estimated blood loss was less than 5 mL. The patient tolerated the procedure very well and was transferred to postanesthesia recovery room in stable and good condition. ERIKA FISHMAN MD Apr 22, 2019 17:22
[2019-04-22] MEDS ORDERED: BUTORPHANOL 2 MG INJ IM ONE (17:30)
[2019-04-22] MEDS ORDERED: DOXYCYCLINE 100 MG TAB PO ONE (17:30)
[2019-04-22] MEDS ORDERED: KETOROLAC 30 MG INJ IM STA (17:30)
[2019-04-22] MEDS ORDERED: ACETAMINOPHEN 500 MG TAB PO STA (17:45)
== END 2019-04-22 18:50 | disposition home or self-care (01) ==
LOC: SDS 14:05
PROVIDERS: ATTEND Obstetrics & Gynecology
DX: Z30.2 Encounter for sterilization (principal)
CPT/HCPCS: 58670; 80048; 84703; 85025; 85610; 85730; J0595; J0690; J1100; J1885; J2250; J2405; J2710; J2795; J3010; Z7512; Z7610